=== PATIENT | female | born 1955 | race African-American/Black ===

== ENCOUNTER 2016-08-10 20:45 | Inpatient (IN) | payer MEDICARE, MEDICAID ==
[~2016-08-10] VITALS: Ht 152.4 cm; Wt 59.9 kg
[~2016-08-10 20:45] MED LIST: ASPI-986 PO; CHOL100046 PO; LEVE500T19 PO; METO-293 PO; NIFE100P10 MC; SEVE800T8 PO
[2016-08-10] MEDS ORDERED: LEVETIRACETAM 500MG TABLET PO SCH (21:54)
[2016-08-10] MEDS ORDERED: ACETAMINOPHEN 325MG TABLET PO PRN (22:00)
[2016-08-10 23:00] VITALS: BP 110/76
[2016-08-10] MEDS: ATORVASTATIN CALCIUM 10MG TABLET PO SCH (23:04)
[2016-08-11 06:58] LABS: BASOPHILS % 0.9 % (0.0-2.0); EOSINOPHILS % 8.1 % (0.0-5.0); HEMATOCRIT. 32.5 % (36.0-48.0); HEMOGLOBIN. 10.3 g/dL (12.0-16.0); LYMPHOCYTES % 16.5 % (20.0-50.0); MEAN CORPUSCULAR HEMOGLOBIN 23.1 pg (28.0-32.0); MEAN CORPUSCULAR VOLUME 72.7 fL (81.0-99.0); MEAN PLATELET VOLUME 8.9 fl (7.4-10.4); MONOCYTES % 9.9 % (2.0-8.0); NEUTROPHILS % 64.6 % (40.0-76.0); PLATELET 282 x1000/uL (130-400); RED BLOOD CELL COUNT 4.47 mill/uL (4.2-5.4); RED CELL DISTRIBUTION WIDTH 15.9 % (11.6-14.6)
[2016-08-11 07:05] LABS: CARBON DIOXIDE 26 mEq/L (21-32); CHLORIDE 109 mEq/L (98-107)
[2016-08-11 07:10] LABS: PREALBUMIN 21.8 mg/dL (20.0-40.0)
[2016-08-11 08:00] VITALS: BP 153/72
[2016-08-11] MEDS ORDERED: METOCLOPRAMIDE HCL 10MG TABLET PO SCH (09:00)
[2016-08-11] MEDS ORDERED: ASPIRIN 81MG EC TABLET PO SCH (09:00)
[2016-08-11 09:07] LABS: T4 FREE 1.09 ng/dL (0.76-1.46)
[2016-08-11] MEDS: SEVELAMER CARBONATE 800 MG TABLET PO SCH ×2 (09:41→22:02)
[2016-08-11] MEDS: FERROUS SULFATE 325MG TABLET PO SCH ×3 (09:41→22:02)
[2016-08-11] MEDS: DOCUSATE SODIUM 100MG CAPSULE PO SCH ×2 (09:41→22:02)
[2016-08-11] MEDS: NIFEDIPINE XL 30MG TAB PO SCH (09:42)
[2016-08-11] MEDS: LEVETIRACETAM 500MG TABLET PO SCH ×2 (09:42→22:02)
[2016-08-11] MEDS: FOLIC ACID/VITAMIN B COMP W-C TABLET PO SCH (09:42)
[2016-08-11] MEDS: ENOXAPARIN 30MG/0.3ML SYR SUBCUT SCH (09:43)
[2016-08-11] MEDS: LOSARTAN POTASSIUM 100 MG TABLET PO SCH (09:43)
[2016-08-11] MEDS: PANTOPRAZOLE 40MG DR TABLET PO SCH (09:43)
[2016-08-11 09:45] LABS: FOLIC ACID (FOLATE) SERUM 9.2 ng/mL (>5.38)
[2016-08-11 20:00] VITALS: BP 129/98
[2016-08-11] MEDS ORDERED: HEPARIN SODIUM 1,000 UNIT/1ML VIAL IV ONE (22:00)
[2016-08-11] MEDS: ATORVASTATIN CALCIUM 10MG TABLET PO SCH (22:02)
[2016-08-11] MEDS: POLYETHYLENE GLYCOL 3350 (17GM) 1 DOSE PACK PO SCH (22:03)
[2016-08-12] MEDS: PANTOPRAZOLE 40MG DR TABLET PO SCH (06:04)
[2016-08-12 08:00] VITALS: BP 119/76
[2016-08-12] MEDS: LEVETIRACETAM 500MG TABLET PO SCH ×2 (09:37→17:13)
[2016-08-12] MEDS: FOLIC ACID/VITAMIN B COMP W-C TABLET PO SCH (09:37)
[2016-08-12] MEDS: FERROUS SULFATE 325MG TABLET PO SCH ×3 (09:38→17:12)
[2016-08-12] MEDS: SEVELAMER CARBONATE 800 MG TABLET PO SCH ×2 (09:38→17:12)
[2016-08-12] MEDS: LOSARTAN POTASSIUM 100 MG TABLET PO SCH (09:38)
[2016-08-12] MEDS: DOCUSATE SODIUM 100MG CAPSULE PO SCH ×2 (09:38→17:12)
[2016-08-12] MEDS: NIFEDIPINE XL 30MG TAB PO SCH (09:38)
[2016-08-12] MEDS: ENOXAPARIN 30MG/0.3ML SYR SUBCUT SCH (09:39)
[2016-08-12 16:41] LABS: CLARITY URINE CLOUDY (CLEAR); COLOR URINE YELLOW (YELLOW); GLUCOSE URINE NEGATIVE (NEGATIVE); KETONES URINE NEGATIVE (NEGATIVE); LEUKOCYTE ESTERASE URINE NEGATIVE (NEGATIVE); NITRITE URINE NEGATIVE (NEGATIVE); OCCULT BLOOD URINE NEGATIVE (NEGATIVE); PH URINE >=9.0 (4.5-8.0); PROTEIN URINE 1+ (NEGATIVE); SPECIFIC GRAVITY URINE 1.015 (1.005-1.030)
[2016-08-12] MEDS ORDERED: NA PHOS,M-B/NA PHOS,DI-BA ENEMA 118ML PR PRN (17:00)
[2016-08-12] MEDS: LACTULOSE 20G/30ML UDC PO SCH ×2 (17:12→22:04)
[2016-08-12 20:00] VITALS: BP 121/71
[2016-08-12] MEDS: POLYETHYLENE GLYCOL 3350 (17GM) 1 DOSE PACK PO SCH (22:04)
[2016-08-12] MEDS: ATORVASTATIN CALCIUM 10MG TABLET PO SCH (22:04)
[2016-08-13 07:06] LABS: BASOPHILS % 1.1 % (0.0-2.0); EOSINOPHILS % 7.8 % (0.0-5.0); HEMATOCRIT. 31.3 % (36.0-48.0); LYMPHOCYTES % 19.3 % (20.0-50.0); MEAN CORPUSCULAR VOLUME 71.6 fL (81.0-99.0); MONOCYTES % 10.1 % (2.0-8.0); NEUTROPHILS % 61.7 % (40.0-76.0); PLATELET 253 x1000/uL (130-400); RED BLOOD CELL COUNT 4.36 mill/uL (4.2-5.4); RED CELL DISTRIBUTION WIDTH 15.7 % (11.6-14.6)
[2016-08-13 08:00] VITALS: BP 127/70
[2016-08-13 08:05] LABS: PHOSPHORUS 2.9 mg/dL (2.5-4.9)
[2016-08-13] MEDS: LOSARTAN POTASSIUM 100 MG TABLET PO SCH (08:10)
[2016-08-13] MEDS: NIFEDIPINE XL 30MG TAB PO SCH (08:10)
[2016-08-13] MEDS: FOLIC ACID/VITAMIN B COMP W-C TABLET PO SCH (08:14)
[2016-08-13] MEDS: DOCUSATE SODIUM 100MG CAPSULE PO SCH ×2 (08:15→16:48)
[2016-08-13] MEDS: CYANOCOBALAMIN 1000MCG/ML VIAL IM SCH (08:15)
[2016-08-13] MEDS: SEVELAMER CARBONATE 800 MG TABLET PO SCH ×2 (08:15→16:48)
[2016-08-13] MEDS: LEVETIRACETAM 500MG TABLET PO SCH ×2 (08:15→16:48)
[2016-08-13] MEDS: PANTOPRAZOLE 40MG DR TABLET PO SCH (08:15)
[2016-08-13] MEDS: FERROUS SULFATE 325MG TABLET PO SCH ×3 (08:15→16:48)
[2016-08-13] MEDS: ENOXAPARIN 30MG/0.3ML SYR SUBCUT SCH (08:16)
[2016-08-13] MEDS ORDERED: FAMOTIDINE 20MG TABLET PO SCH (09:00)
[2016-08-13 20:00] VITALS: BP 121/78
[2016-08-13] MEDS: POLYETHYLENE GLYCOL 3350 (17GM) 1 DOSE PACK PO SCH (21:00)
[2016-08-13 22:43] VITALS: BP 135/109
[2016-08-13 22:50] VITALS: BP 160/109
[2016-08-13 23:10] VITALS: BP 128/71
[2016-08-13] MEDS: EPOETIN ALFA 4000UNITS/ML VIAL SUBCUT SCH (23:54)
[2016-08-13] MEDS: ATORVASTATIN CALCIUM 10MG TABLET PO SCH (23:54)
[2016-08-14 05:00] VITALS: BP 149/86
[2016-08-14] MEDS: PANTOPRAZOLE 40MG DR TABLET PO SCH (06:20)
[2016-08-14 08:00] VITALS: BP 120/87
[2016-08-14] MEDS: SEVELAMER CARBONATE 800 MG TABLET PO SCH ×2 (08:49→16:26)
[2016-08-14] MEDS: FERROUS SULFATE 325MG TABLET PO SCH ×3 (08:50→16:26)
[2016-08-14] MEDS: DOCUSATE SODIUM 100MG CAPSULE PO SCH ×2 (08:50→16:26)
[2016-08-14] MEDS: LOSARTAN POTASSIUM 100 MG TABLET PO SCH (08:50)
[2016-08-14] MEDS: NIFEDIPINE XL 30MG TAB PO SCH (08:50)
[2016-08-14] MEDS: FOLIC ACID/VITAMIN B COMP W-C TABLET PO SCH (08:50)
[2016-08-14] MEDS: LEVETIRACETAM 500MG TABLET PO SCH ×2 (08:50→16:26)
[2016-08-14] MEDS: CYANOCOBALAMIN 1000MCG/ML VIAL IM SCH (08:52)
[2016-08-14] MEDS: ENOXAPARIN 30MG/0.3ML SYR SUBCUT SCH (08:52)
[2016-08-14 20:00] VITALS: BP 91/50
[2016-08-14] MEDS: POLYETHYLENE GLYCOL 3350 (17GM) 1 DOSE PACK PO SCH (21:06)
[2016-08-14] MEDS: ATORVASTATIN CALCIUM 10MG TABLET PO SCH (21:06)
[2016-08-15] MEDS: PANTOPRAZOLE 40MG DR TABLET PO SCH (06:43)
[2016-08-15 08:00] VITALS: BP 128/70
[2016-08-15] MEDS: FOLIC ACID/VITAMIN B COMP W-C TABLET PO SCH (08:24)
[2016-08-15] MEDS: SEVELAMER CARBONATE 800 MG TABLET PO SCH ×2 (08:24→17:13)
[2016-08-15] MEDS: LOSARTAN POTASSIUM 100 MG TABLET PO SCH (08:24)
[2016-08-15] MEDS: FERROUS SULFATE 325MG TABLET PO SCH ×3 (08:24→17:14)
[2016-08-15] MEDS: DOCUSATE SODIUM 100MG CAPSULE PO SCH ×2 (08:24→17:13)
[2016-08-15] MEDS: LEVETIRACETAM 250MG TABLET PO SCH ×2 (08:29→17:14)
[2016-08-15] MEDS: NIFEDIPINE XL 30MG TAB PO SCH (08:29)
[2016-08-15] MEDS: CYANOCOBALAMIN 1000MCG/ML VIAL IM SCH (08:30)
[2016-08-15] MEDS: ENOXAPARIN 30MG/0.3ML SYR SUBCUT SCH (08:31)
[2016-08-15 19:00] VITALS: BP 108/65
[2016-08-15] MEDS: ATORVASTATIN CALCIUM 10MG TABLET PO SCH (20:54)
[2016-08-15] MEDS: POLYETHYLENE GLYCOL 3350 (17GM) 1 DOSE PACK PO SCH (20:54)
[2016-08-16 06:08] LABS: BASOPHILS % 1.2 % (0.0-2.0); EOSINOPHILS % 8.2 % (0.0-5.0); HEMATOCRIT. 32.3 % (36.0-48.0); HEMOGLOBIN. 10.2 g/dL (12.0-16.0); LYMPHOCYTES % 18.6 % (20.0-50.0); MEAN CORPUSCULAR VOLUME 72.6 fL (81.0-99.0); MONOCYTES % 9.9 % (2.0-8.0); NEUTROPHILS % 62.1 % (40.0-76.0); PLATELET 276 x1000/uL (130-400); RED BLOOD CELL COUNT 4.45 mill/uL (4.2-5.4); RED CELL DISTRIBUTION WIDTH 15.8 % (11.6-14.6)
[2016-08-16] MEDS: PANTOPRAZOLE 40MG DR TABLET PO SCH (06:17)
[2016-08-16 08:00] VITALS: BP 126/64
[2016-08-16] MEDS: LOSARTAN POTASSIUM 100 MG TABLET PO SCH (09:00)
[2016-08-16] MEDS: NIFEDIPINE XL 30MG TAB PO SCH (09:00)
[2016-08-16] MEDS: FOLIC ACID/VITAMIN B COMP W-C TABLET PO SCH (09:18)
[2016-08-16] MEDS: FERROUS SULFATE 325MG TABLET PO SCH ×3 (09:19→16:00)
[2016-08-16] MEDS: LEVETIRACETAM 250MG TABLET PO SCH ×2 (09:19→16:00)
[2016-08-16] MEDS: SEVELAMER CARBONATE 800 MG TABLET PO SCH ×2 (09:19→16:00)
[2016-08-16] MEDS: DOCUSATE SODIUM 100MG CAPSULE PO SCH ×2 (09:19→16:00)
[2016-08-16] MEDS: ENOXAPARIN 30MG/0.3ML SYR SUBCUT SCH (09:22)
[2016-08-16] MEDS: CYANOCOBALAMIN 1000MCG/ML VIAL IM SCH (09:54)
[2016-08-16 20:00] VITALS: BP 138/84
[2016-08-16] MEDS: ATORVASTATIN CALCIUM 10MG TABLET PO SCH (23:42)
[2016-08-16] MEDS: POLYETHYLENE GLYCOL 3350 (17GM) 1 DOSE PACK PO SCH (23:42)
[2016-08-16] MEDS: EPOETIN ALFA 4000UNITS/ML VIAL SUBCUT SCH (23:43)
[2016-08-17] MEDS: PANTOPRAZOLE 40MG DR TABLET PO SCH (06:51)
[2016-08-17 07:08] LABS: BASOPHILS % 0.9 % (0.0-2.0); EOSINOPHILS % 3.2 % (0.0-5.0); HEMATOCRIT. 34.6 % (36.0-48.0); HEMOGLOBIN. 11.2 g/dL (12.0-16.0); LYMPHOCYTES % 11.9 % (20.0-50.0); MEAN CORPUSCULAR HEMOGLOBIN 23.1 pg (28.0-32.0); MEAN CORPUSCULAR VOLUME 71.6 fL (81.0-99.0); MEAN PLATELET VOLUME 9.5 fl (7.4-10.4); MONOCYTES % 8.6 % (2.0-8.0); NEUTROPHILS % 75.4 % (40.0-76.0); PLATELET 260 x1000/uL (130-400); RED BLOOD CELL COUNT 4.83 mill/uL (4.2-5.4); RED CELL DISTRIBUTION WIDTH 15.5 % (11.6-14.6)
[2016-08-17 08:00] VITALS: BP 133/84
[2016-08-17] MEDS: FOLIC ACID/VITAMIN B COMP W-C TABLET PO SCH (08:40)
[2016-08-17] MEDS: LEVETIRACETAM 250MG TABLET PO SCH ×2 (08:40→16:58)
[2016-08-17] MEDS: CYANOCOBALAMIN 1000MCG/ML VIAL IM SCH (08:40)
[2016-08-17] MEDS: NIFEDIPINE XL 30MG TAB PO SCH (08:41)
[2016-08-17] MEDS: ENOXAPARIN 30MG/0.3ML SYR SUBCUT SCH (08:41)
[2016-08-17] MEDS: SEVELAMER CARBONATE 800 MG TABLET PO SCH ×2 (08:41→16:58)
[2016-08-17] MEDS: DOCUSATE SODIUM 100MG CAPSULE PO SCH ×2 (08:41→16:58)
[2016-08-17] MEDS: FERROUS SULFATE 325MG TABLET PO SCH ×3 (08:41→16:59)
[2016-08-17] MEDS: LOSARTAN POTASSIUM 100 MG TABLET PO SCH (08:41)
[2016-08-17] MEDS ORDERED: POTASSIUM CHLORIDE 20MEQ TABLET SR PO NR (10:15)
[2016-08-17 20:00] VITALS: BP 100/62
[2016-08-17] MEDS: ATORVASTATIN CALCIUM 10MG TABLET PO SCH (20:42)
[2016-08-17] MEDS: POLYETHYLENE GLYCOL 3350 (17GM) 1 DOSE PACK PO SCH (20:42)
[2016-08-18] MEDS: PANTOPRAZOLE 40MG DR TABLET PO SCH (06:12)
[2016-08-18 08:00] VITALS: BP 118/70
[2016-08-18 10:59] LABS: EOSINOPHILS % 8.6 % (0.0-5.0); HEMATOCRIT. 35.3 % (36.0-48.0); HEMOGLOBIN. 11.2 g/dL (12.0-16.0); LYMPHOCYTES % 19.1 % (20.0-50.0); MEAN CORPUSCULAR HEMOGLOBIN 22.9 pg (28.0-32.0); MEAN PLATELET VOLUME 9.2 fl (7.4-10.4); MONOCYTES % 10.1 % (2.0-8.0); NEUTROPHILS % 61.2 % (40.0-76.0); PLATELET 281 x1000/uL (130-400); RED CELL DISTRIBUTION WIDTH 15.7 % (11.6-14.6)
[2016-08-18] MEDS: FERROUS SULFATE 325MG TABLET PO SCH ×3 (11:12→18:28)
[2016-08-18] MEDS: LEVETIRACETAM 500MG TABLET PO SCH ×2 (11:12→18:28)
[2016-08-18] MEDS: SEVELAMER CARBONATE 800 MG TABLET PO SCH ×2 (11:12→18:27)
[2016-08-18] MEDS: LOSARTAN POTASSIUM 100 MG TABLET PO SCH (11:12)
[2016-08-18] MEDS: FOLIC ACID/VITAMIN B COMP W-C TABLET PO SCH (11:12)
[2016-08-18] MEDS: ENOXAPARIN 30MG/0.3ML SYR SUBCUT SCH (11:13)
[2016-08-18] MEDS: CYANOCOBALAMIN 1000MCG/ML VIAL IM SCH (11:13)
[2016-08-18] MEDS: NIFEDIPINE XL 30MG TAB PO SCH (11:13)
[2016-08-18] MEDS: DOCUSATE SODIUM 100MG CAPSULE PO SCH ×2 (11:13→18:28)
[2016-08-18 20:00] VITALS: BP 90/56
[2016-08-18] MEDS ORDERED: BISACODYL 5MG TABLET PO PRN (20:00)
[2016-08-18] MEDS: POLYETHYLENE GLYCOL 3350 (17GM) 1 DOSE PACK PO SCH (21:00)
[2016-08-18] MEDS: ATORVASTATIN CALCIUM 10MG TABLET PO SCH (21:02)
[2016-08-19 06:12] LABS: BASOPHILS % 1.2 % (0.0-2.0); HEMOGLOBIN. 11.3 g/dL (12.0-16.0); LYMPHOCYTES % 17.6 % (20.0-50.0); MEAN CORPUSCULAR HEMOGLOBIN 23.3 pg (28.0-32.0); MEAN CORPUSCULAR VOLUME 72.2 fL (81.0-99.0); MEAN PLATELET VOLUME 9.2 fl (7.4-10.4); MONOCYTES % 10.7 % (2.0-8.0); NEUTROPHILS % 62.5 % (40.0-76.0); PLATELET 273 x1000/uL (130-400); RED BLOOD CELL COUNT 4.84 mill/uL (4.2-5.4); RED CELL DISTRIBUTION WIDTH 15.8 % (11.6-14.6)
[2016-08-19] MEDS: PANTOPRAZOLE 40MG DR TABLET PO SCH (06:27)
[2016-08-19 08:00] VITALS: BP 100/66
[2016-08-19] MEDS: CYANOCOBALAMIN 1000MCG/ML VIAL IM SCH (08:01)
[2016-08-19] MEDS: FERROUS SULFATE 325MG TABLET PO SCH ×3 (08:02→17:36)
[2016-08-19] MEDS: DOCUSATE SODIUM 100MG CAPSULE PO SCH ×2 (08:02→17:36)
[2016-08-19] MEDS: LEVETIRACETAM 500MG TABLET PO SCH ×2 (08:02→17:36)
[2016-08-19] MEDS: SEVELAMER CARBONATE 800 MG TABLET PO SCH ×2 (08:02→17:36)
[2016-08-19] MEDS: ENOXAPARIN 30MG/0.3ML SYR SUBCUT SCH (08:02)
[2016-08-19] MEDS: FOLIC ACID/VITAMIN B COMP W-C TABLET PO SCH (08:02)
[2016-08-19] MEDS: LOSARTAN POTASSIUM 100 MG TABLET PO SCH (08:03)
[2016-08-19] MEDS: NIFEDIPINE XL 30MG TAB PO SCH (08:03)
[2016-08-19 20:00] VITALS: BP 92/50
[2016-08-19] MEDS: ATORVASTATIN CALCIUM 10MG TABLET PO SCH (21:03)
[2016-08-19] MEDS: POLYETHYLENE GLYCOL 3350 (17GM) 1 DOSE PACK PO SCH (21:03)
[2016-08-20 03:39] LABS: BASOPHILS % 1.1 % (0.0-2.0); EOSINOPHILS % 9.6 % (0.0-5.0); HEMATOCRIT. 36.3 % (36.0-48.0); HEMOGLOBIN. 11.7 g/dL (12.0-16.0); LYMPHOCYTES % 20.2 % (20.0-50.0); MEAN CORPUSCULAR VOLUME 71.5 fL (81.0-99.0); MEAN PLATELET VOLUME 9.2 fl (7.4-10.4); MONOCYTES % 10.8 % (2.0-8.0); NEUTROPHILS % 58.3 % (40.0-76.0); PLATELET 275 x1000/uL (130-400); RED BLOOD CELL COUNT 5.08 mill/uL (4.2-5.4); RED CELL DISTRIBUTION WIDTH 15.4 % (11.6-14.6)
[2016-08-20 08:00] VITALS: BP 120/86
[2016-08-20] MEDS: ENOXAPARIN 30MG/0.3ML SYR SUBCUT SCH (09:43)
[2016-08-20] MEDS: LOSARTAN POTASSIUM 100 MG TABLET PO SCH (09:43)
[2016-08-20] MEDS: NIFEDIPINE XL 30MG TAB PO SCH (09:44)
[2016-08-20] MEDS: LEVETIRACETAM 500MG TABLET PO SCH ×2 (09:44→16:18)
[2016-08-20] MEDS: PANTOPRAZOLE 40MG DR TABLET PO SCH (09:44)
[2016-08-20] MEDS: FERROUS SULFATE 325MG TABLET PO SCH ×3 (09:44→16:18)
[2016-08-20] MEDS: FOLIC ACID/VITAMIN B COMP W-C TABLET PO SCH (09:44)
[2016-08-20] MEDS: SEVELAMER CARBONATE 800 MG TABLET PO SCH ×2 (09:44→16:17)
[2016-08-20] MEDS: DOCUSATE SODIUM 100MG CAPSULE PO SCH ×2 (09:44→16:17)
[2016-08-20 20:00] VITALS: BP 95/60
[2016-08-20] MEDS: POLYETHYLENE GLYCOL 3350 (17GM) 1 DOSE PACK PO SCH (21:01)
[2016-08-20] MEDS: ATORVASTATIN CALCIUM 10MG TABLET PO SCH (21:01)
[2016-08-21] MEDS: PANTOPRAZOLE 40MG DR TABLET PO SCH (06:18)
[2016-08-21 08:00] VITALS: BP 108/72
[2016-08-21] MEDS: NIFEDIPINE XL 30MG TAB PO SCH (09:00)
[2016-08-21] MEDS: LOSARTAN POTASSIUM 100 MG TABLET PO SCH (09:00)
[2016-08-21] MEDS: DOCUSATE SODIUM 100MG CAPSULE PO SCH ×2 (09:29→17:50)
[2016-08-21] MEDS: FOLIC ACID/VITAMIN B COMP W-C TABLET PO SCH (09:29)
[2016-08-21] MEDS: LEVETIRACETAM 500MG TABLET PO SCH ×2 (09:29→17:50)
[2016-08-21] MEDS: FERROUS SULFATE 325MG TABLET PO SCH ×3 (09:29→17:50)
[2016-08-21] MEDS: SEVELAMER CARBONATE 800 MG TABLET PO SCH ×2 (09:29→17:50)
[2016-08-21] MEDS: ENOXAPARIN 30MG/0.3ML SYR SUBCUT SCH (09:30)
[2016-08-21 20:00] VITALS: BP 115/65
[2016-08-21] MEDS: POLYETHYLENE GLYCOL 3350 (17GM) 1 DOSE PACK PO SCH (20:42)
[2016-08-21] MEDS: ATORVASTATIN CALCIUM 10MG TABLET PO SCH (20:42)
[2016-08-22] MEDS: PANTOPRAZOLE 40MG DR TABLET PO SCH (06:08)
[2016-08-22 08:00] VITALS: BP 136/77
[2016-08-22] MEDS: LEVETIRACETAM 500MG TABLET PO SCH ×2 (08:07→17:13)
[2016-08-22] MEDS: LOSARTAN POTASSIUM 100 MG TABLET PO SCH (08:07)
[2016-08-22] MEDS: SEVELAMER CARBONATE 800 MG TABLET PO SCH ×2 (08:07→17:13)
[2016-08-22] MEDS: NIFEDIPINE XL 30MG TAB PO SCH (08:07)
[2016-08-22] MEDS: ENOXAPARIN 30MG/0.3ML SYR SUBCUT SCH (08:07)
[2016-08-22] MEDS: DOCUSATE SODIUM 100MG CAPSULE PO SCH ×2 (08:07→17:13)
[2016-08-22] MEDS: FOLIC ACID/VITAMIN B COMP W-C TABLET PO SCH (08:07)
[2016-08-22] MEDS: FERROUS SULFATE 325MG TABLET PO SCH ×3 (08:11→17:13)
[2016-08-22 20:00] VITALS: BP 109/61
[2016-08-22] MEDS: POLYETHYLENE GLYCOL 3350 (17GM) 1 DOSE PACK PO SCH (21:49)
[2016-08-22] MEDS: ATORVASTATIN CALCIUM 10MG TABLET PO SCH (21:50)
[2016-08-23 05:03] LABS: BASOPHILS % 1.2 % (0.0-2.0); EOSINOPHILS % 9.6 % (0.0-5.0); HEMATOCRIT. 33.3 % (36.0-48.0); HEMOGLOBIN. 10.5 g/dL (12.0-16.0); LYMPHOCYTES % 17.6 % (20.0-50.0); MEAN CORPUSCULAR VOLUME 73.2 fL (81.0-99.0); MEAN PLATELET VOLUME 9.4 fl (7.4-10.4); MONOCYTES % 8.3 % (2.0-8.0); NEUTROPHILS % 63.3 % (40.0-76.0); PLATELET 271 x1000/uL (130-400); RED BLOOD CELL COUNT 4.54 mill/uL (4.2-5.4); RED CELL DISTRIBUTION WIDTH 15.9 % (11.6-14.6)
[2016-08-23 08:00] VITALS: BP 124/79
[2016-08-23] MEDS: LOSARTAN POTASSIUM 100 MG TABLET PO SCH (09:00)
[2016-08-23] MEDS: NIFEDIPINE XL 30MG TAB PO SCH (09:00)
[2016-08-23] MEDS: PANTOPRAZOLE 40MG DR TABLET PO SCH (09:33)
[2016-08-23] MEDS: FERROUS SULFATE 325MG TABLET PO SCH ×3 (09:34→16:17)
[2016-08-23] MEDS: DOCUSATE SODIUM 100MG CAPSULE PO SCH ×2 (09:34→16:17)
[2016-08-23] MEDS: LEVETIRACETAM 500MG TABLET PO SCH ×2 (09:35→16:17)
[2016-08-23] MEDS: SEVELAMER CARBONATE 800 MG TABLET PO SCH ×2 (09:36→16:17)
[2016-08-23] MEDS: FOLIC ACID/VITAMIN B COMP W-C TABLET PO SCH (09:36)
[2016-08-23] MEDS: ENOXAPARIN 30MG/0.3ML SYR SUBCUT SCH (09:38)
[2016-08-23 20:00] VITALS: BP 114/74
[2016-08-23] MEDS: POLYETHYLENE GLYCOL 3350 (17GM) 1 DOSE PACK PO SCH (21:00)
[2016-08-23] MEDS: ATORVASTATIN CALCIUM 10MG TABLET PO SCH (21:45)
[2016-08-24] MEDS: PANTOPRAZOLE 40MG DR TABLET PO SCH (06:07)
[2016-08-24 08:00] VITALS: BP 126/82
[2016-08-24] MEDS: LEVETIRACETAM 500MG TABLET PO SCH ×2 (09:57→17:35)
[2016-08-24] MEDS: DOCUSATE SODIUM 100MG CAPSULE PO SCH ×2 (09:57→17:35)
[2016-08-24] MEDS: SEVELAMER CARBONATE 800 MG TABLET PO SCH ×2 (09:57→17:35)
[2016-08-24] MEDS: NIFEDIPINE XL 30MG TAB PO SCH (09:57)
[2016-08-24] MEDS: LOSARTAN POTASSIUM 100 MG TABLET PO SCH (09:57)
[2016-08-24] MEDS: FOLIC ACID/VITAMIN B COMP W-C TABLET PO SCH (09:57)
[2016-08-24] MEDS: FERROUS SULFATE 325MG TABLET PO SCH ×3 (09:57→17:35)
[2016-08-24] MEDS: ENOXAPARIN 30MG/0.3ML SYR SUBCUT SCH (09:58)
[2016-08-24 20:31] VITALS: BP 91/57
[2016-08-24] MEDS: ATORVASTATIN CALCIUM 10MG TABLET PO SCH (21:25)
[2016-08-24] MEDS: POLYETHYLENE GLYCOL 3350 (17GM) 1 DOSE PACK PO SCH (21:25)
[2016-08-25 03:13] LABS: BASOPHILS % 1.4 % (0.0-2.0); EOSINOPHILS % 8.6 % (0.0-5.0); HEMATOCRIT. 32.7 % (36.0-48.0); HEMOGLOBIN. 10.5 g/dL (12.0-16.0); MEAN CORPUSCULAR HEMOGLOBIN 23.3 pg (28.0-32.0); MEAN CORPUSCULAR VOLUME 72.6 fL (81.0-99.0); MEAN PLATELET VOLUME 8.7 fl (7.4-10.4); MONOCYTES % 8.2 % (2.0-8.0); NEUTROPHILS % 63.8 % (40.0-76.0); PLATELET 273 x1000/uL (130-400); RED BLOOD CELL COUNT 4.51 mill/uL (4.2-5.4); RED CELL DISTRIBUTION WIDTH 15.5 % (11.6-14.6)
[2016-08-25 08:00] VITALS: BP 118/76
[2016-08-25] MEDS: LOSARTAN POTASSIUM 100 MG TABLET PO SCH (09:00)
[2016-08-25] MEDS: LEVETIRACETAM 500MG TABLET PO SCH ×2 (09:07→16:47)
[2016-08-25] MEDS: PANTOPRAZOLE 40MG DR TABLET PO SCH (09:08)
[2016-08-25] MEDS: SEVELAMER CARBONATE 800 MG TABLET PO SCH ×2 (09:45→16:47)
[2016-08-25] MEDS: ENOXAPARIN 30MG/0.3ML SYR SUBCUT SCH (09:45)
[2016-08-25] MEDS: DOCUSATE SODIUM 100MG CAPSULE PO SCH ×2 (09:46→16:47)
[2016-08-25] MEDS: FERROUS SULFATE 325MG TABLET PO SCH ×3 (09:46→16:47)
[2016-08-25] MEDS: FOLIC ACID/VITAMIN B COMP W-C TABLET PO SCH (09:46)
[2016-08-25] MEDS: NIFEDIPINE XL 30MG TAB PO SCH (09:46)
[2016-08-25 20:00] VITALS: BP 115/81
[2016-08-25] MEDS: ATORVASTATIN CALCIUM 10MG TABLET PO SCH (20:49)
[2016-08-25] MEDS: POLYETHYLENE GLYCOL 3350 (17GM) 1 DOSE PACK PO SCH (20:49)
[2016-08-26] MEDS: PANTOPRAZOLE 40MG DR TABLET PO SCH (06:04)
[2016-08-26 08:00] VITALS: BP 130/63
[2016-08-26] MEDS: ENOXAPARIN 30MG/0.3ML SYR SUBCUT SCH (08:26)
[2016-08-26] MEDS: FERROUS SULFATE 325MG TABLET PO SCH ×3 (08:27→17:11)
[2016-08-26] MEDS: FOLIC ACID/VITAMIN B COMP W-C TABLET PO SCH (08:27)
[2016-08-26] MEDS: LOSARTAN POTASSIUM 100 MG TABLET PO SCH (08:27)
[2016-08-26] MEDS: SEVELAMER CARBONATE 800 MG TABLET PO SCH ×2 (08:27→17:11)
[2016-08-26] MEDS: DOCUSATE SODIUM 100MG CAPSULE PO SCH ×2 (08:27→17:11)
[2016-08-26] MEDS: NIFEDIPINE XL 30MG TAB PO SCH (08:27)
[2016-08-26] MEDS: LEVETIRACETAM 500MG TABLET PO SCH ×2 (08:27→17:11)
[2016-08-26] MEDS ORDERED: CYANOCOBALAMIN 1000MCG/ML VIAL IM SCH (09:00)
[2016-08-26 20:00] VITALS: BP 91/57
[2016-08-26] MEDS: POLYETHYLENE GLYCOL 3350 (17GM) 1 DOSE PACK PO SCH (21:02)
[2016-08-26] MEDS: ATORVASTATIN CALCIUM 10MG TABLET PO SCH (21:02)
[2016-08-27 06:32] LABS: BASOPHILS % 1.2 % (0.0-2.0); HEMATOCRIT. 31.7 % (36.0-48.0); HEMOGLOBIN. 10.1 g/dL (12.0-16.0); LYMPHOCYTES % 20.5 % (20.0-50.0); MEAN CORPUSCULAR HEMOGLOBIN 23.1 pg (28.0-32.0); MEAN CORPUSCULAR VOLUME 72.2 fL (81.0-99.0); MEAN PLATELET VOLUME 8.9 fl (7.4-10.4); NEUTROPHILS % 61.3 % (40.0-76.0); PLATELET 259 x1000/uL (130-400); RED BLOOD CELL COUNT 4.39 mill/uL (4.2-5.4); RED CELL DISTRIBUTION WIDTH 15.6 % (11.6-14.6)
[2016-08-27 08:00] VITALS: BP 128/83
[2016-08-27 09:30] VITALS: BP 121/86
[2016-08-27] MEDS: FOLIC ACID/VITAMIN B COMP W-C TABLET PO SCH (09:41)
[2016-08-27] MEDS: DOCUSATE SODIUM 100MG CAPSULE PO SCH ×2 (09:41→17:57)
[2016-08-27] MEDS: LOSARTAN POTASSIUM 100 MG TABLET PO SCH (09:41)
[2016-08-27] MEDS: FERROUS SULFATE 325MG TABLET PO SCH ×3 (09:41→17:57)
[2016-08-27] MEDS: SEVELAMER CARBONATE 800 MG TABLET PO SCH ×2 (09:41→17:57)
[2016-08-27] MEDS: PANTOPRAZOLE 40MG DR TABLET PO SCH (09:41)
[2016-08-27] MEDS: LEVETIRACETAM 500MG TABLET PO SCH ×2 (09:41→17:57)
[2016-08-27] MEDS: NIFEDIPINE XL 30MG TAB PO SCH (09:42)
[2016-08-27] MEDS: ENOXAPARIN 30MG/0.3ML SYR SUBCUT SCH (09:42)
[2016-08-27 20:00] VITALS: BP 87/51
[2016-08-27] MEDS: POLYETHYLENE GLYCOL 3350 (17GM) 1 DOSE PACK PO SCH (20:53)
[2016-08-27] MEDS: ATORVASTATIN CALCIUM 10MG TABLET PO SCH (20:53)
[2016-08-27 21:00] VITALS: BP 94/59
[2016-08-28] MEDS: PANTOPRAZOLE 40MG DR TABLET PO SCH (06:04)
[2016-08-28 08:00] VITALS: BP 109/74
[2016-08-28] MEDS: LEVETIRACETAM 500MG TABLET PO SCH (08:48)
[2016-08-28] MEDS: FOLIC ACID/VITAMIN B COMP W-C TABLET PO SCH (08:48)
[2016-08-28] MEDS: DOCUSATE SODIUM 100MG CAPSULE PO SCH (08:48)
[2016-08-28] MEDS: LOSARTAN POTASSIUM 100 MG TABLET PO SCH (08:49)
[2016-08-28] MEDS: NIFEDIPINE XL 30MG TAB PO SCH (08:49)
[2016-08-28] MEDS: SEVELAMER CARBONATE 800 MG TABLET PO SCH (08:49)
[2016-08-28] MEDS: FERROUS SULFATE 325MG TABLET PO SCH ×2 (08:49→11:33)
[2016-08-28] MEDS: ENOXAPARIN 30MG/0.3ML SYR SUBCUT SCH (08:50)
[2016-08-28 12:18] VITALS: BP 117/70
== END 2016-08-28 15:57 | disposition home health service (06) | DRG 64 ==
PROVIDERS: ADMIT Physical Medicine & Rehabilitation Spinal Cord Injury Medicine; ATTEND Hospitalist
PROC: 5A1D60Z (ICD-10-PCS; principal; 2016-08-11)
DX: I63.9 Cerebral infarction, unspecified (principal); N18.6 End stage renal disease; G81.91 Hemiplegia, unspecified affecting right dominant side; I12.0 Hypertensive chronic kidney disease with stage 5 chronic kidney disease or end stage renal disease; E46 Unspecified protein-calorie malnutrition; D64.9 Anemia, unspecified; R47.01 Aphasia; E78.00 Pure hypercholesterolemia, unspecified; G40.909 Epilepsy, unspecified, not intractable, without status epilepticus; R13.10 Dysphagia, unspecified; R29.810 Facial weakness; R26.9 Unspecified abnormalities of gait and mobility; R47.1 Dysarthria and anarthria; E11.22 Type 2 diabetes mellitus with diabetic chronic kidney disease; E53.8 Deficiency of other specified B group vitamins; M48.02 Spinal stenosis, cervical region; Z99.2 Dependence on renal dialysis; Z86.73 Personal history of transient ischemic attack (TIA), and cerebral infarction without residual deficits; Z68.25 Body mass index [BMI] 25.0-25.9, adult
CPT/HCPCS: 36415; 70544; 70553; 71010; 72141; 80048; 80051; 80053; 80061; 81001; 82306; 82607; 82728; 82746; 82962; 83036; 83540; 83550; 83735; 84100; 84134; 84439; 84443; 84481; 84630; 85025; 87086; 92523; 93306; 93880; 97110; 97112; 97116; 97163; 97167; 97530; 97532; 97535; C1893; J0885; J1650; J3420; J7030; J7042